=== PATIENT | male | born 1970 | race Caucasian/White ===

== ENCOUNTER 2016-09-13 08:19 | Day surgery (SDC) | payer BC ==
[~2016-09-13] VITALS: Ht 175.3 cm; Wt 104.5 kg
[~2016-09-13 08:19] MED LIST: ASPIRIN81 M2 PO; COZAAR50 MG PO; ONE DAILY FOR1 EACH PO; TRIGLIDE160 MG PO
[2016-09-13 08:50] VITALS: BP 121/75
[2016-09-13] MEDS ORDERED: NORCO 5/3251 TABLET PO (11:20)
[2016-09-13 12:24] VITALS: BP 108/56
[2016-09-13 13:14] VITALS: BP 109/52
[2016-09-13 15:30] VITALS: BP 119/60
== END 2016-09-13 15:50 | disposition home or self-care (01) ==
LOC: SDC 08:19
PROC: 0WUF4JZ Supplement Abdominal Wall with Synthetic Substitute, Percutaneous Endoscopic Approach (ICD-10-PCS; principal; 2016-09-13)
DX: K42.0 Umbilical hernia with obstruction, without gangrene (principal); E78.1 Pure hyperglyceridemia; I10 Essential (primary) hypertension; E66.9 Obesity, unspecified; Z68.35 Body mass index [BMI] 35.0-35.9, adult; Z87.891 Personal history of nicotine dependence; Z79.82 Long term (current) use of aspirin
CPT/HCPCS: C1781; J0330; J0690; J1100; J1885; J2250; J2405; J3010